=== PATIENT | male | born 1940 | race Caucasian/White ===

== ENCOUNTER 2020-09-21 10:34 | Outpatient (REF) | payer MEDICARE, OTHER, SELFPAY ==
[2020-09-21 14:23] LABS: MANUAL DIFF FLAG NO
[2020-09-21 14:32] LABS: Basophils Percent Auto 0.5 % (0-2); Eosinophils Absolute Auto 0.3 X10*3/uL (0.0-0.4); Eosinophils Percent Auto 4.6 % (0-4); Hematocrit 34.2 % (42-52); Hemoglobin 11.2 g/dl (14.0-18.0); Imm Gran Abs Auto 0.07 X10*3/uL (0.00-0.03); Lymphocytes Absolute Auto 1.7 X10*3/uL (1.2-4.9); Lymphocytes Percent Auto 22.5 % (20-40); Mean Corpuscular HGB Conc 32.7 g/dl (31.0-36.0); Mean Corpuscular Hemoglobin 35.2 pg (27.0-33.0); Mean Corpuscular Volume 107.5 fL (80-98); Mean Platelet Volume 10.7 fL (9.4-12.4); Monocytes Absolute Auto 1.4 X10*3/uL (0.1-1.2); Monocytes Percent Auto 19.3 % (2-11); Neutrophils Absolute Auto 3.8 X10*3/uL (2.0-8.3); Neutrophils Percent Auto 52.1 % (45-73); Platelet Count 127 X10*3/uL (160-400); Red Blood Count 3.18 X10*6/uL (4.60-5.80); Red Cell Distribution Width 13.2 % (11.0-16.0); White Blood Count 7.3 X10*3/uL (4.8-10.8)
[2020-09-21 15:14] LABS: Alanine Aminotransferase 18 U/L (0-40); Albumin Level 4.3 g/dL (3.5-5.0); Alkaline Phosphatase 56 U/L (39-117); Anion Gap 16 (12-20); Aspartate Amino Transferase 19 U/L (5-37); Bilirubin Total 0.6 mg/dL (0.0-1.0); Blood Urea Nitrogen 22 mg/dL (9-16); Carbon Dioxide 25 mmol/L (22-29); Chloride 107 mmol/L (96-108); Cholesterol 114 mg/dL; Estimated Glomerular Filt Rate 51; Glucose Fasting 90 mg/dL (60-99); HDL Cholesterol 31 mg/dL; LDL Cholesterol Calculated 55 mg/dl; Potassium 4.9 mmol/l (3.3-5.1); Sodium 143 mmol/L (135-145); Total Protein 7.8 g/dL (6.5-8.0); Triglycerides 144 mg/dL
[2020-09-21 15:26] LABS: Vitamin D 25-OH Total 25.8 ng/mL (>30)
== END 2020-09-21 10:35 | disposition home or self-care (01) ==
LOC: HO.10HDL 10:34
PROVIDERS: Visit Provider Internal Medicine
DX: E03.9 Hypothyroidism, unspecified (principal); E55.9 Vitamin D deficiency, unspecified; E11.9 Type 2 diabetes mellitus without complications; I10 Essential (primary) hypertension
CPT/HCPCS: 36415; 80053; 80061; 82306; 84443; 85025

== ENCOUNTER → 2020-10-15 14:14 | Outpatient (BNVA) | payer MEDICARE, OTHER, SELFPAY | PROVIDERS: PCP Internal Medicine; Referring Provider Internal Medicine; Visit Provider Hospitalist | DX: R91.1 Solitary pulmonary nodule (principal); R93.89 Abnormal findings on diagnostic imaging of other specified body structures; R12 Heartburn | CPT/HCPCS: 99212 ==

== ENCOUNTER 2020-11-14 08:47 | Outpatient (REF) | payer MEDICARE, OTHER, SELFPAY ==
--- NOTE | 2020-11-14 08:53 | FL_ITS ---
EXAMINATION: FL BARIUM SWALLOW CLINICAL INFORMATION: Gastroesophageal reflux disease. COMPARISON: Previous chest CT March 2020 TECHNIQUE: Barium swallow examination is performed using fluoroscopic evaluation in addition to multiple fluoroscopic spot views. The patient is imaged both upright and prone and using both thick and thin sulfate along with effervescent granules. Fluoroscopy time: 2.3 minutes DAP: 15 Gycm2 Images: 44 FINDINGS: Barium swallow was performed using thin and thick barium and effervescent granules. Barium tablet was also administered. Exam is limited due to difficulty positioning the patient. The swallowing mechanism appears normal. No aspiration or penetration is seen. There is diffuse dilatation of the thoracic esophagus is abnormal esophageal peristalsis. There is beak formation seen distally suggestive of achalasia. There is temporary stasis of the barium tablet at the GE junction. Eventually this passed into the stomach and there is no evidence for obstruction. No mass is seen. The visualized stomach and proximal and duodenum are unremarkable. FL/FL barium swallow IMPRESSION: Achalasia of the esophagus.
== END 2020-11-14 08:48 | disposition home or self-care (01) ==
LOC: HO.XRAY 08:47
PROVIDERS: PCP Internal Medicine; Visit Provider Hospitalist
DX: K21.9 Gastro-esophageal reflux disease without esophagitis (principal)
CPT/HCPCS: 74220

== ENCOUNTER → 2020-12-04 08:04 | Outpatient (BNVA) | payer MEDICARE, OTHER, SELFPAY | PROVIDERS: PCP Internal Medicine; Visit Provider Physician Assistant | DX: R13.10 Dysphagia, unspecified (principal) | CPT/HCPCS: Q3014 ==

== ENCOUNTER 2021-01-17 09:55 | Outpatient (REF) | payer MEDICARE, OTHER, SELFPAY ==
[2021-01-17 10:54] LABS: MANUAL DIFF FLAG NO
[2021-01-17 10:57] LABS: Basophils Absolute Auto 0.1 X10*3/uL (0.0-0.2); Basophils Percent Auto 0.6 % (0-2); Eosinophils Absolute Auto 0.3 X10*3/uL (0.0-0.4); Eosinophils Percent Auto 3.7 % (0-4); Hematocrit 33.7 % (42-52); Hemoglobin 11.3 g/dl (14.0-18.0); Imm Gran Abs Auto 0.08 X10*3/uL (0.00-0.03); Lymphocytes Absolute Auto 1.2 X10*3/uL (1.2-4.9); Lymphocytes Percent Auto 14.5 % (20-40); Mean Corpuscular HGB Conc 33.5 g/dl (31.0-36.0); Mean Corpuscular Hemoglobin 35.2 pg (27.0-33.0); Mean Platelet Volume 10.5 fL (9.4-12.4); Monocytes Absolute Auto 1.3 X10*3/uL (0.1-1.2); Monocytes Percent Auto 16.2 % (2-11); Neutrophils Absolute Auto 5.3 X10*3/uL (2.0-8.3); Platelet Count 133 X10*3/uL (160-400); Red Blood Count 3.21 X10*6/uL (4.60-5.80); Red Cell Distribution Width 12.7 % (11.0-16.0); White Blood Count 8.2 X10*3/uL (4.8-10.8)
[2021-01-17 11:26] LABS: Alanine Aminotransferase 14 U/L (0-40); Albumin Level 4.3 g/dL (3.5-5.0); Alkaline Phosphatase 57 U/L (39-117); Anion Gap 13 (12-20); Aspartate Amino Transferase 17 U/L (5-37); Bilirubin Total 0.8 mg/dL (0.0-1.0); Blood Urea Nitrogen 19 mg/dL (9-16); Calcium 9.3 mg/dL (8.4-10.2); Carbon Dioxide 26 mmol/L (22-29); Chloride 108 mmol/L (96-108); Cholesterol 110 mg/dL; Estimated Glomerular Filt Rate 57; Glucose Fasting 99 mg/dL (60-99); HDL Cholesterol 28 mg/dL; LDL Cholesterol Calculated 54 mg/dl; Potassium 4.2 mmol/L (3.3-5.1); Sodium 143 mmol/L (135-145); Total Protein 7.7 g/dL (6.5-8.0); Triglycerides 141 mg/dL
[2021-01-17 11:41] LABS: Thyroid Stimulating Hormone 0.92 uIU/mL (0.32-4.0); Vitamin D 25-OH Total 28.6 ng/mL (>30)
== END 2021-01-17 09:56 | disposition home or self-care (01) ==
LOC: HO.LAB 09:55
PROVIDERS: PCP Internal Medicine; Visit Provider Internal Medicine
DX: Z00.00 Encounter for general adult medical examination without abnormal findings (principal); E11.9 Type 2 diabetes mellitus without complications; E03.9 Hypothyroidism, unspecified; E78.5 Hyperlipidemia, unspecified
CPT/HCPCS: 36415; 80053; 80061; 82306; 84443; 85025

== ENCOUNTER 2021-02-05 10:37 | Day surgery (SDC) | payer MEDICARE, OTHER, SELFPAY ==
[2021-01-30 10:42] VITALS: BMI 28.1
--- NOTE | 2021-02-04 11:07 | HO.ANESPROP2 ---
Documented by User: Katie Hernandez 02/04/21 11:11 HPI - Anesthesia Eval Consult details Narrative: 81yo M for Upper Endoscopy With 100 Units Botox plavix - prophylactic d/t strong fam hx of cva PMFSH Active Problems Active Problems: All Active Problems (Updated 01/30/21 @ 15:42 by Maria Esther Vann) Physical exam (Acute) Hyperlipidemia (Acute) Dysphagia (Acute) Abnormal chest x-ray (Acute) Pulmonary nodule (Acute) Heartburn (Acute) Hypertension (Acute) Past Medical History Medical History Abnormal chest x-ray Dementia Dysphagia Heartburn Hyperlipidemia Hypertension On anticoagulant therapy Pulmonary nodule Family History Family History Father No problems noted. Mother No problems noted. Brother No problems noted. Son No problems noted. Son No problems noted. Surgical History Surgical History Hx of transurethral resection of prostate Social History Social History Alcohol intake: never Smoking Status: Never smoker Use of substances other than those prescribed or required for medical reasons: No Advance Directives Information Provided: No Meds Allergies Allergy/AdvReac Type Severity Reaction Status Date / Time No Known Allergies Allergy Verified 12/12/20 12:00 [No Known Allergies*] Home Medications Medication Instructions Recorded Confirmed Last Taken Type alpha lipoic acid 200 mg capsule 200 mg PO DAILY 08/14/20 01/30/21 Unknown History aspirin 81 mg tablet,delayed 81 mg PO DAILY 08/14/20 01/30/21 Unknown History release atorvastatin 20 mg tablet 20 mg PO DAILY 08/14/20 01/30/21 Unknown History clopidogrel 75 mg tablet 75 mg PO DAILY 08/14/20 01/30/21 Unknown History donepezil 10 mg tablet 10 mg PO DAILY 08/14/20 01/30/21 Unknown History escitalopram oxalate 10 mg tablet 10 mg PO DAILY 08/14/20 01/30/21 Unknown History finasteride 5 mg tablet 5 mg PO DAILY 08/14/20 01/30/21 Unknown History folic acid 1 mg tablet 1 mg PO DAILY 08/14/20 01/30/21 Unknown History memantine 5 mg tablet 5 mg PO BID 08/14/20 01/30/21 Unknown History vriaarta-bxallaun-jfipb acid 400 1 tab PO DAILY tab 08/14/20 01/30/21 Unknown History mcg-vit K 20 mcg-lycop 300 mcg tablet silver sulfadiazine 1 % topical 1 applic TOPICAL BID 08/14/20 01/30/21 Unknown History cream flu vacc [id number](65yr up)-PF 240 ml IM 10/15/20 12/26/20 Unknown History mcg/0.7 mL intramuscular syringe Exam Exam Date and Time: February 04, 2021 1107 Height,Weight and Vital Signs: Height 5 ft 7 in Weight 81.6 kg Pertinent Lab Results Pertinent Lab Results: Laboratory Tests 01/17/21 01/17/21 10:15 10:15 WBC 8.2 Hgb 11.3 L Hct 33.7 L Plt Count 133 L Sodium 143 Potassium 4.2 Chloride 108 Carbon Dioxide 26 BUN 19 H Creatinine 1.23 Assessment and Plan Assessment Anesthesia Assessment: Chart Reviewed Documented by User: Svetlana Fajardo 02/05/21 11:43 [facility] Past Medical History Medical History Abnormal chest x-ray Dementia Dysphagia Heartburn Hyperlipidemia Hypertension On anticoagulant therapy Pulmonary nodule Family History Family History Father No problems noted. Mother No problems noted. Brother No problems noted. Son No problems noted. Son No problems noted. Surgical History Surgical History Hx of transurethral resection of prostate Social History Social History Alcohol intake: never Smoking Status: Never smoker Use of substances other than those prescribed or required for medical reasons: No Advance Directives Information Provided: No Meds Allergies Allergy/AdvReac Type Severity Reaction Status Date / Time No Known Allergies Allergy Verified 12/12/20 12:00 [No Known Allergies*] Home Medications Medication Instructions Recorded Confirmed Last Taken Type alpha lipoic acid 200 mg capsule 200 mg PO DAILY 08/14/20 01/30/21 Unknown History aspirin 81 mg tablet,delayed 81 mg PO DAILY 08/14/20 01/30/21 Unknown History release atorvastatin 20 mg tablet 20 mg PO DAILY 08/14/20 01/30/21 Unknown History clopidogrel 75 mg tablet 75 mg PO DAILY 08/14/20 01/30/21 Unknown History donepezil 10 mg tablet 10 mg PO DAILY 08/14/20 01/30/21 Unknown History escitalopram oxalate 10 mg tablet 10 mg PO DAILY 08/14/20 01/30/21 Unknown History finasteride 5 mg tablet 5 mg PO DAILY 08/14/20 01/30/21 Unknown History folic acid 1 mg tablet 1 mg PO DAILY 08/14/20 01/30/21 Unknown History memantine 5 mg tablet 5 mg PO BID 08/14/20 01/30/21 Unknown History kujrxdis-etuhnjoi-ywfom acid 400 1 tab PO DAILY tab 08/14/20 01/30/21 Unknown History mcg-vit K 20 mcg-lycop 300 mcg tablet silver sulfadiazine 1 % topical 1 applic TOPICAL BID 08/14/20 01/30/21 Unknown History cream flu vacc [id number](65yr up)-PF 240 ml IM 10/15/20 12/26/20 Unknown History mcg/0.7 mL intramuscular syringe Exam Airway Mallampati Class: II TM Dist: >3cm Loose/Missing/Broken Teeth: Yes Heart: RRR Lungs: CTA Assessment and Plan Assessment Anesthesia Assessment: Anesthesia Plan Discussed and Chart Reviewed Final Anesthetic Review NPO: Yes ASA Class: II Final Preanesthetic Review: Meds/Allgs Chart Reviewed and Consent Obtained/Reviewed Patient Risk: Low Procedure Risk: Intermediate Anesthetic Plan Anesthetic Plan: MAC: Disposition: Standard PACU
[2021-02-05 11:20] VITALS: BP 149/67; PULSE 68; RESP 17; TEMP 36.9; O2SAT 96; BMI 26.7
--- NOTE | 2021-02-05 11:35 | MHC.SHP ---
Pre-Procedural Eval Section B Chief Complaint: dysphagia Relevant Family History (Specify if Yes): No Relevant Social History: None Present Medications: see Short Stay Collaborative assessment Medical History: Significant History (Abnormal chest x-ray Dementia Dysphagia Heartburn Hyperlipidemia Hypertension On anticoagulant therapy Pulmonary nodule) History of Previous Operations: Relevant previous surgery/procedure and date(s) (TURP) Allergies: Allergies Allergy/AdvReac Type Severity Reaction Status Date / Time No Known Allergies Allergy Verified 12/12/20 12:00 [No Known Allergies*] Review of Systems Sugical H&P ROS: Negative: Constitution, Cardiovascular, Respiratory, Neurological, Psychiatric, Hem-Onc, Allergic/Immunologic, Gastrointestinal, Genitourinary, Musculoskeletal, Integumentary, Endocrine and Eyes/Ears/Nose/Throat Exam Surgical H&P Exam: Normal: HEENT, Normal: Heart, Normal: Lungs, Normal: Extremities, Normal: Abdomen and Normal: Skin and Significant Findings: Neurological (dementia) Plan Diagnosis/Plan: Unchanged I have reviewed the history and physical and performed a pertinent physical examination on my patient. No changes have occurred unless specified.
[2021-02-05] MEDS: Lactated Ringers 1,000 ML 50 ML IV (11:36)
--- NOTE | 2021-02-05 12:17 | PM.OP ---
Brief Operative Note Date of Service: 02/05/21 Pre-op diagnosis: dysphagia Post-op diagnosis: same Procedure: see op note Surgeon: Valentín Price MD Anesthesia: MAC Estimated blood loss (mL): 0 Condition: stable Disposition: PACU
--- NOTE | 2021-02-05 12:36 | W.PM.OPN ---
Operative Note Operative Note Date of Service: 02/05/21 Narrative: Procedure Description: EGD FLEXIBLE TRANSORAL UPPER GASTROINTESTINAL ENDOSCOPY UPPER ENDOSCOPY Consent: Indications for the procedure and potential complications of bleeding, perforation, reaction to medications and missed diagnosis were discussed with the patient and informed consent was obtained. Instrument: Olympus GIF H 190 J mid size upper endoscope Monitoring: Vital signs and clinical assessment, continuous EKG monitoring, Pulse oximetry, Carbon Dioxide monitoring and blood pressure monitoring were done throughout the procedure. Procedure: The patient was placed in the left lateral decubitis position and pre-procedure medications were administered and a bite block was placed. The endoscope was inserted into the mouth and advanced under direct vision to the third part of duodenum. A careful inspection was made as the upper endoscope was withdrawn including a retroflexed examination of the proximal stomach; Findings and interventions are described below. Findings: Larynx:normal Esophagus: GE junction at 38 cm, diaphragm hiatus at 38 cm, mild inflammation at cardia. A CRE balloon was inflated at GEJ to 20 mm which did appear a little tight but scope easily traversed. 100 units of diluted botox in 5 cc of saline was then injected into the LES area. Stomach: Patchy gastric erythema. Grade 2 flap valve on retroflexed examination of the cardia. Duodenum: Mild duodenitis Intervention: Balloon dilation followed by botox injection Impression/Findings: tight GEJ, s/p balloon dilation and botox injection PLAN: Recommend cont with omeprazole can gradually expand diet as tolerated, can take few days to 2-4 weeks for full benefit from the injection with effects lasting 1 yr or more, may need further injection if evidence of aspirating or coughing with food, clinical complaints of dysphagia chew food thoroughly and small frequent meals
[2021-02-05 13:06] VITALS: BP 140/72; PULSE 77; RESP 16; TEMP 36.6; O2SAT 99
[2021-02-05 13:22] VITALS: BP 101/79; PULSE 76; RESP 16; O2SAT 95
[2021-02-05 13:38] VITALS: BP 150/69; PULSE 58; RESP 16; O2SAT 97
[2021-02-05 13:53] VITALS: BP 157/79; PULSE 58; RESP 18; TEMP 36.8; O2SAT 98
== END 2021-02-05 14:01 | disposition home or self-care (01) ==
PROVIDERS: PCP Internal Medicine; Visit Provider Internal Medicine Gastroenterology
PROC: 0DJ08ZZ Inspection of Upper Intestinal Tract, Via Natural or Artificial Opening Endoscopic (ICD-10-PCS; CPT 43235; principal; 2021-02-05 11:50)
DX: R13.10 Dysphagia, unspecified (principal); K22.8 Other specified diseases of esophagus; K21.9 Gastro-esophageal reflux disease without esophagitis; K29.80 Duodenitis without bleeding; K44.9 Diaphragmatic hernia without obstruction or gangrene; K20.80 Other esophagitis without bleeding; I10 Essential (primary) hypertension; E78.5 Hyperlipidemia, unspecified; F03.90 Unspecified dementia, unspecified severity, without behavioral disturbance, psychotic disturbance, mood disturbance, and anxiety; R91.1 Solitary pulmonary nodule; Z79.01 Long term (current) use of anticoagulants; Z79.82 Long term (current) use of aspirin; Z79.899 Other long term (current) drug therapy; Z82.3 Family history of stroke
CPT/HCPCS: 43249; 43236; C1726; J0585

== ENCOUNTER → 2021-02-12 09:09 | Outpatient (BNVA) | payer MEDICARE, OTHER, SELFPAY | PROVIDERS: PCP Internal Medicine; Visit Provider Physician Assistant | DX: R13.10 Dysphagia, unspecified (principal) | CPT/HCPCS: Q3014 ==

== ENCOUNTER 2021-02-19 08:50 | Outpatient (REF) | payer MEDICARE, OTHER, SELFPAY ==
--- NOTE | ~2021-02-19 | CT_ITS ---
EXAMINATION: CT CHEST WITHOUT CONTRAST CLINICAL INFORMATION: Pulmonary nodule COMPARISON: Chest x-ray August 14, [address] April 02, 2020 TECHNIQUE: Multidetector volumetric CT imaging of the chest was done. Axial MIP volume rendering provided. Sagittal and coronal reformatted images were obtained. This CT examination was performed using dose optimization techniques as appropriate, variously including the following: *Automated exposure control *Adjustment of mA and/or kV according to patient size (this includes techniques or standardized protocols for targeted exams where dose is matched to indication/reason for exam; i.e. extremities or head) *Use of iterative reconstruction technique DLP: 178 mGy-cm FINDINGS: The heart is normal in size. Coronary artery calcifications are present. There is no pericardial effusion. Nonaneurysmal thoracic aorta. No gross mediastinal lymphadenopathy. The esophagus demonstrates mild differential thickening diffusely, a stable finding. No axillary lymphadenopathy. Central airways are patent. Lungs are well aerated. Similar appearing/prominence of the subpleural linear opacity within the right midlung with associated traction bronchiectasis. Scarring/atelectasis of the posterior right lung base is also stable. No lobar consolidation is present. No pleural effusion or pneumothorax. No suspicious pulmonary nodules visualized. Visualized portion of the upper abdomen are grossly unremarkable. Mild to moderate diffuse degenerative changes of the spine. CT/CT chest wo con IMPRESSION: -Scarring/atelectatic changes of the right lung are stable. -No suspicious pulmonary nodules.
== END 2021-02-19 08:51 | disposition home or self-care (01) ==
LOC: HO.CT 08:50
PROVIDERS: Visit Provider Hospitalist
DX: R91.1 Solitary pulmonary nodule (principal); R93.89 Abnormal findings on diagnostic imaging of other specified body structures; R12 Heartburn
CPT/HCPCS: 71250

== ENCOUNTER → 2021-03-18 10:11 | Outpatient (BNVA) | payer MEDICARE, OTHER, SELFPAY | PROVIDERS: PCP Internal Medicine; Visit Provider Hospitalist | DX: K21.9 Gastro-esophageal reflux disease without esophagitis (principal); R91.1 Solitary pulmonary nodule | CPT/HCPCS: 99212 ==

== ENCOUNTER 2021-05-01 08:57 | Outpatient (RCR) | payer MEDICARE, OTHER, SELFPAY ==
--- NOTE | 2021-05-01 12:22 | MHC.PT.EP ---
[facility] [place] Office [place] Office [place] Office [address] Car Carrillo [address] [phone] F: [phone] F: [phone] F: [phone] F: [phone] Physical Therapy Plan of Care Date of Evaluation: 05/01/21 Diagnosis: gait disorder other s/s involving cognitive functions Assessment: 81 y/o male referred to PT with other symptoms and signs involving cognitive functions and LEOBARDO; treat for gait instability. Pt with PMH significant for dementia and HTN. His son is present and gives history as pt is poor historian (unable to answer questions due to dementia). His son states that gait/stability has been worsening over the past 3 years after he was diagnosed with dementia. He lives alone and has BARMAN/TOOLING SPECIALIST 3x/day to assist with clip and hanger attacher, cooking, medication distribution, and bathing. He is homebound and does not leave the house except for appointments (son will bring him). Per son, he uses furniture to ambulate and cannot walk far (>5min). Transport chair is used to attend appointments. During evaluation, pt unable to follow 2-step commands and inconsistent with 1-step commands. He demonstrate good functional strength and AROM. However his balance, gait, coordination, cognition, and judgment are significantly impaired. Assessed gait with w/c follow and trial of RW and trial of no assistive device. His gait pattern was worse with assistive device. During gait, he would have difficulty initiating with L foot, step length increasingly shortens with distance, similar to festinating gait pattern, he would freeze (R foot remained in terminal stance position for ~3 seconds and verbal/tactile cues needed to progress R LE through gait.) Pt became audibly frustrated/ agitated and again sat down without warning into w/c without eccentric control. He has poor safety awareness and became increasingly agitated in busy clinic. He would benefit from home PT for functional mobility, safety, gait verse busy clinic with distractions and new surrounding. Short Term Goals: No goals indication. Would benefit from home PT [facility] Goals: No goals indicated Electronically signed by: Maritza Del Real PT Please sign and return to therapist. Thank you for your referral.
--- NOTE | 2021-05-01 15:09 | MHC.PT.DC ---
[facility] [place] Office [place] Office [place] Office [address] Car Carrillo [address] [phone] F: [phone] F: [phone] F: [phone] F: [phone] Physical Therapy Discharge Report Diagnosis: gait disorder other s/s involving cognitive functions Date of Surgery: Date of Evaluation: 05/01/21 Date of Discharge: 05/01/21 Treatments to Date: 1 Cancellations to Date: 0 No Shows to Date: 0 Discharge Status: Discharge Summary: 81 y/o male referred to PT with other symptoms and signs involving cognitive functions and LEOBARDO; treat for gait instability. Pt with PMH significant for dementia and HTN. His son is present and gives history as pt is poor historian (unable to answer questions due to dementia). His son states that gait/stability has been worsening over the past 3 years after he was diagnosed with dementia. He lives alone and has RIVETER PORTABLE MACHINE/COLD FOOD PACKER 3x/day to assist with electronics recycler, cooking, medication distribution, and bathing. He is homebound and does not leave the house except for appointments (son will bring him). Per son, he uses furniture to ambulate and cannot walk far (>5min). Transport chair is used to attend appointments. During evaluation, pt unable to follow 2-step commands and inconsistent with 1-step commands. He demonstrate good functional strength and AROM. However his balance, gait, coordination, cognition, and judgment are significantly impaired. Assessed gait with w/c follow and trial of RW and trial of no assistive device. His gait pattern was worse with assistive device. During gait, he would have difficulty initiating with L foot, step length increasingly shortens with distance, similar to festinating gait pattern, he would freeze (R foot remained in terminal stance position for ~3 seconds and verbal/tactile cues needed to progress R LE through gait.) Pt became audibly frustrated/ agitated and again sat down without warning into w/c without eccentric control. He has poor safety awareness and became increasingly agitated in busy clinic. He would benefit from home PT for functional mobility, safety, gait verse busy clinic with distractions and new surrounding. Electronically signed by: Maritza Del Real PT Please sign and return to therapist. Thank you for your referral.
== END 2021-05-01 15:46 | disposition home or self-care (01) ==
LOC: HO.PTCHIC 08:57
PROVIDERS: PCP Internal Medicine; Visit Provider Internal Medicine
DX: R41.89 Other symptoms and signs involving cognitive functions and awareness (principal)
CPT/HCPCS: 97163

== ENCOUNTER 2021-05-30 16:23 | Outpatient (REF) | payer MEDICARE, OTHER, SELFPAY ==
--- NOTE | ~2021-05-30 | XR_ITS ---
EXAMINATION: XR CHEST CLINICAL INFORMATION: Screening for TB COMPARISON: Previous chest x-ray July [address] February 2021 TECHNIQUE: Frontal view of the chest was obtained. FINDINGS: The cardiac and mediastinal contours are stable. There is linear scarring or chronic subsegmental atelectasis in the right midlung similar to previous exams. The lungs are otherwise clear. There is no pleural effusion or thorax. There are degenerative changes of the spine. XR/XR chest 1V IMPRESSION: No evidence of active TB in the chest. Linear scarring or chronic subsegmental atelectasis of the right lung similar to previous exams.
== END 2021-05-30 16:24 | disposition home or self-care (01) ==
LOC: HO.XRAY 16:23
PROVIDERS: PCP Internal Medicine; Visit Provider Internal Medicine
DX: Z11.1 Encounter for screening for respiratory tuberculosis (principal)
CPT/HCPCS: 71045